=== PATIENT | female | born 1980 | race Two or more races ===

== ENCOUNTER 2018-03-18 16:35 | Outpatient (CLI) | payer OTHER ==
[~2018-03-18 16:35] MED LIST: ANUSOL-HC25 MG RECTAL; SEPTRA DS TABLE1 TAB PO; [UNRECOGNIZED DRUG - OTHER]
== END 2018-03-22 16:48 | disposition home or self-care (01) ==
LOC: RAD 16:35
DX: K59.09 Other constipation (principal)

== ENCOUNTER → 2018-03-25 | Day surgery (SDC) | payer OTHER | END | disposition home or self-care (01) | LOC: ADM 03-18 15:00 → AMB-ENDOS 08:37 | DX: K59.09 Other constipation (principal); K64.1 Second degree hemorrhoids ==

== ENCOUNTER 2020-04-18 18:01 | Emergency (ER) | payer OTHER ==
[~2020-04-18] VITALS: Ht 165.1 cm; Wt 98.9 kg
== END 2020-04-18 21:46 | disposition home or self-care (01) ==
LOC: ER 18:01
DX: M94.0 Chondrocostal junction syndrome [Tietze] (principal); Z03.818 Encounter for observation for suspected exposure to other biological agents ruled out

== ENCOUNTER 2021-06-14 00:57 | Emergency (ER) | payer OTHER ==
[~2021-06-14] VITALS: Ht 160 cm; Wt 95.3 kg
[2021-06-14] MEDS ORDERED: LOTENSIN20 MG (01:32)
[2021-06-14] MEDS ORDERED: VITAMIN C500 M6 PO (09:45)
[2021-06-14] MEDS ORDERED: ZINC GLUCONATE100 MG PO (09:45)
[2021-06-14] MEDS ORDERED: MEDROLPACK PO (09:45)
== END 2021-06-14 10:04 | disposition home or self-care (01) ==
LOC: ER 00:57
DX: U07.1 COVID-19 (principal); I10 Essential (primary) hypertension

== ENCOUNTER → 2024-01-18 | Emergency (ER) | payer OTHER ==
[~2024-01-18] VITALS: Ht 167.6 cm; Wt 98.9 kg
[~2024-01-18] MED LIST changes: +KETOROLAC TROMETHAMINE 60 MG VIAL IM ONE; +KETOROLAC TROMETHAMINE 60 MG VIAL IM STA; +LACTULOSE 10 G/15 ML ML PO STA; +LACTULOSE 20 G/30 ML BLIST.PACK ONE; +LOTENSIN20 MG; +MAGNESIUM HYDROXIDE 30 ML BLIST.PACK PO ONE; +MAGNESIUM HYDROXIDE 400 MG/5 ML ML PO STA; +MEDROLPACK PO; +NA PHOS,M-B/NA PHOS,DI-BA 1 BOTTLE ENEMA RECTAL STA; +VITAMIN C500 M6 PO; +ZINC GLUCONATE100 MG PO
[2024-01-18 09:02] LABS: HEMOGLOBIN 11.7 g/dL (12.0-15.00); MEAN CELL VOLUME 81.4 fL (80.00-100.00); MEAN CORPUSCULAR HEMOGLOBIN 27.1 pg (27.00-32.0); MEAN CORPUSCULAR HGB CONC 33.3 g/dl (32.0-36.0); PLATELET COUNT 155 K/uL (150-450); RED CELL DISTRIBUTION WIDTH 14.8 % (11.5-14.5)
[2024-01-18 09:23] LABS: PH,URINE 6.5 (5.0-8.0); URINE APPEARANCE Clear; URINE BILIRRUBIN Negative (NEGATIVE); URINE BLOOD Negative; URINE COLOR Yellow; URINE GLUCOSE Negative (NEGATIVE); URINE KETONE Negative (NEGATIVE); URINE LEUKOCYTE Negative; URINE NITRATE Negative; URINE PROTEIN Negative (NEGATIVE)
[2024-01-18 09:27] LABS: URINE EPITHELIAL CELLS 30.6 uL (0.0-38.8); URINE RBC 5.1 uL (0.0-20.8); URINE WBC 20.8 uL (0.0-23.2)
[2024-01-18 09:28] LABS: CALCIUM 9.6 mg/dL (8.5-10.1); CREATININE SERUM 0.68 mg/dL (0.55-1.02); GFR 95.35; POTASSIUM 3.6 mEq/L (3.5-5.1)
[2024-01-18 09:30] LABS: URINE CAST 0.15 uL (0.0-1.40)
== END | disposition left against medical advice (07) ==
LOC: ER 06:14
PROVIDERS: General Practice
DX: K59.09 Other constipation (principal); R10.9 Unspecified abdominal pain; I10 Essential (primary) hypertension

== ENCOUNTER 2024-11-14 06:49 | Day surgery (SDC) | payer OTHER ==
[~2024-11-14 06:49] MED LIST changes: -KETOROLAC TROMETHAMINE 60 MG VIAL IM ONE; -KETOROLAC TROMETHAMINE 60 MG VIAL IM STA; -LACTULOSE 10 G/15 ML ML PO STA; -LACTULOSE 20 G/30 ML BLIST.PACK ONE; -MAGNESIUM HYDROXIDE 30 ML BLIST.PACK PO ONE; -MAGNESIUM HYDROXIDE 400 MG/5 ML ML PO STA; -NA PHOS,M-B/NA PHOS,DI-BA 1 BOTTLE ENEMA RECTAL STA
[2024-11-14] MEDS ORDERED: DIPHENHYDRAMINE HCL 50 MG/ML VIAL 1ML IV ONE (13:30)
[2024-11-14] MEDS ORDERED: MIDAZOLAM HCL 2 MG/2 ML VIAL IV ONE (13:30)
[2024-11-14] MEDS ORDERED: fentaNYL CITRATE 50 MCG/ML AMPUL IV PUSH ONE (13:30)
== END 2024-11-14 14:50 | disposition home or self-care (01) ==
LOC: AMB-ENDOS 06:49
PROVIDERS: ATTEND Colon & Rectal Surgery
DX: K59.00 Constipation, unspecified (principal); K64.2 Third degree hemorrhoids

== ENCOUNTER 2024-12-04 11:16 | Outpatient (CLI) | payer OTHER | END 2024-12-04 11:23 | disposition home or self-care (01) | LOC: RAD 11:16 | PROVIDERS: ATTEND Colon & Rectal Surgery | DX: K59.09 Other constipation (principal) ==

== ENCOUNTER 2025-04-11 12:31 | Inpatient (IN) | payer OTHER ==
[~2025-04-11] VITALS: Ht 152.4 cm; Wt 103.4 kg
[2025-04-11] MEDS ORDERED: AZOR 10-20 MG1 EACH PO (13:36)
[2025-04-11] MEDS ORDERED: MIRALAX17 GM PO (13:36)
[2025-04-17] MEDS ORDERED: BUPIVACAINE HCL/MPF 0.5% 30ML VIAL ONE (14:17)
[2025-04-17] MEDS ORDERED: LIDOCAINE HCL 1%/EPINEPHRINE 20ML VIAL IJ ONE (14:17)
[2025-04-17] MEDS ORDERED: CEFTRIAXONE SODIUM 2,000 MG VIAL IV ONE (15:00)
[2025-04-17] MEDS ORDERED: METRONIDAZOLE/SODIUM CHLORIDE 500 MG/100 ML PIGGYBACK IV ONE (15:00)
[2025-04-17] MEDS ORDERED: OxyCODONE HCL 5 MG TABLET (ROXICODONE) PO PRN (17:00)
[2025-04-17] MEDS ORDERED: MORPHINE SULFATE 4 MG/ML CARTRIDGE IV PRN (17:00)
[2025-04-17] MEDS ORDERED: ONDANSETRON HCL 2 MG/ML VIAL IV PRN (17:00)
[2025-04-17] MEDS ORDERED: RINGERS SOLUTION,LACTATED 1,000 ML IV SCH (17:00)
[2025-04-17] MEDS ORDERED: DEXTROSE 50 % IN WATER 0.5 G/ML DISP.SYRIN IV PRN (17:00)
[2025-04-17] MEDS ORDERED: CELECOXIB 200 MG CAPSULE PO SCH (17:00)
[2025-04-17] MEDS ORDERED: GABAPENTIN 300 MG CAPSULE PO SCH (17:00)
[2025-04-17] MEDS ORDERED: HYOSCYAMINE SULFATE 0.125 MG TAB.SUBL SL SCH (17:00)
[2025-04-17] MEDS ORDERED: FAMOTIDINE/PF 20 MG/2 ML VIAL IV PUSH SCH (17:00)
[2025-04-17] MEDS ORDERED: LACTULOSE 20 G/30 ML BLIST.PACK PO SCH (17:00)
[2025-04-17] MEDS ORDERED: SUGAMMADEX SODIUM 200 MG/2 ML VIAL IV ONE (17:06)
[2025-04-17] MEDS ORDERED: ACETAMINOPHEN 500 MG GEL..CAP PO SCH (18:00)
[2025-04-17 20:04] LABS: BASO % 0.1 % (0.1-1.2); EOS # 0.03 (0.04-0.54); EOS % 0.2 % (0.7-7.0); LYMPH # 0.88 (1.18-3.74); LYMPH % 5.6 % (19.3-53.1); MEAN PLATELET VOLUME 14.20 fl (9.4-12.4); MONO # 0.60 (0.24-0.82); MONO % 3.8 % (4.7-12.5); NEUT # 14.14 (1.56-6.13); NEUT % 89.9 % (34.0-71.1); RED CELL DISTRIBUTION WIDTH 14.2 % (11.6-14.4)
[2025-04-17 20:29] LABS: BUN CREA RATIO 15.0 (7.0-25.0); CREATININE SERUM 0.68 mg/dL (0.55-1.02); GFR 94.89; GLUCOSE FASTING 196.0 mg/dL (65-100); OSMOLALITY SERUM 282.0 MOSM/KG (275-295)
[2025-04-17] MEDS ORDERED: FAMOTIDINE/PF 20 MG/2 ML VIAL ONE (21:20)
[2025-04-17 21:37] VITALS: BP 126/77; O2SAT 100
[2025-04-17 22:38] VITALS: BP 152/86; O2SAT 95
[2025-04-17 23:53] VITALS: BP 138/91; O2SAT 94
[2025-04-18 06:26] LABS: BASO % 0.4 % (0.1-1.2); EOS # 0.01 (0.04-0.54); EOS % 0.1 % (0.7-7.0); LYMPH # 0.69 (1.18-3.74); LYMPH % 4.9 % (19.3-53.1); MEAN PLATELET VOLUME 14.20 fl (9.4-12.4); MONO # 0.80 (0.24-0.82); MONO % 5.7 % (4.7-12.5); NEUT # 12.42 (1.56-6.13); NEUT % 88.6 % (34.0-71.1); RED CELL DISTRIBUTION WIDTH 14.0 % (11.6-14.4)
[2025-04-18 06:37] LABS: BUN CREA RATIO 9.0 (7.0-25.0); CREATININE SERUM 0.65 mg/dL (0.55-1.02); GFR 99.96; GLUCOSE FASTING 133.0 mg/dL (65-100); OSMOLALITY SERUM 271.0 MOSM/KG (275-295)
[2025-04-18 08:10] VITALS: BP 122/85; O2SAT 99
[2025-04-18] MEDS ORDERED: MENTHOL/CETYLPYRD CL 1 LOZENGE MM SCH (13:00)
[2025-04-18] MEDS ORDERED: ENOXAPARIN SODIUM 40 MG/0.4 ML SYRINGE SUBCUTANEO SCH (17:00)
[2025-04-19 00:30] VITALS: BP 112/75; O2SAT 98
[2025-04-19 07:36] LABS: BASO % 0.4 % (0.1-1.2); EOS # 0.27 (0.04-0.54); EOS % 3.7 % (0.7-7.0); LYMPH # 1.20 (1.18-3.74); LYMPH % 16.6 % (19.3-53.1); MEAN PLATELET VOLUME 14.20 fl (9.4-12.4); MONO # 0.78 (0.24-0.82); MONO % 10.8 % (4.7-12.5); NEUT # 4.92 (1.56-6.13); NEUT % 68.2 % (34.0-71.1); RED CELL DISTRIBUTION WIDTH 14.5 % (11.6-14.4)
[2025-04-19 07:47] LABS: BUN CREA RATIO 11.0 (7.0-25.0); CREATININE SERUM 0.82 mg/dL (0.55-1.02); GFR 76.45; GLUCOSE FASTING 100.0 mg/dL (65-100); OSMOLALITY SERUM 284.0 MOSM/KG (275-295)
[2025-04-19 08:04] VITALS: BP 117/77; O2SAT 98
[2025-04-19] MEDS ORDERED: ENOXAPARIN SODIUM 40 MG/0.4 ML SYRINGE SUBCUTANEO SCH (09:00)
[2025-04-19] MEDS ORDERED: POTASSIUM PHOS,M-BASIC-D-BASIC 3 MM/ML VIAL IV NR (09:45)
[2025-04-19 17:00] VITALS: BP 126/83; O2SAT 100
[2025-04-20] VITALS: BP 112/73; O2SAT 98
[2025-04-20 08:00] VITALS: BP 113/76; O2SAT 98
[2025-04-20 16:16] VITALS: BP 115/79; O2SAT 100
[2025-04-20] MEDS ORDERED: PAIN RELIEVER500 M2 PO (16:59)
[2025-04-20] MEDS ORDERED: HYOSCYAMINE0.125 M1 SL (16:59)
[2025-04-20] MEDS ORDERED: GABAPENTIN300 MG PO (16:59)
== END 2025-04-20 23:24 | disposition home or self-care (01) | DRG 331 ==
LOC: O/R 04-17 07:00 → SURG 04-17 07:00 → SURH 04-17 12:45 → SURG 04-17 14:15 → SURH 04-17 16:00 → SURG 04-20 23:24
PROVIDERS: Internal Medicine Geriatric Medicine; ADMIT Colon & Rectal Surgery; ATTEND Colon & Rectal Surgery
PROC: 0DBP4ZZ Excision of Rectum, Percutaneous Endoscopic Approach (ICD-10-PCS; 2025-04-17)
PROC: 0DJD8ZZ Inspection of Lower Intestinal Tract, Via Natural or Artificial Opening Endoscopic (ICD-10-PCS; 2025-04-17)
PROC: 0DTN4ZZ Resection of Sigmoid Colon, Percutaneous Endoscopic Approach (ICD-10-PCS; principal; 2025-04-17 16:00)
DX: K56.41 Fecal impaction (principal); D50.0 Iron deficiency anemia secondary to blood loss (chronic)